=== PATIENT | male | born 1930 | race Caucasian/White ===

== ENCOUNTER 2016-10-11 05:57 | Inpatient (IN) | payer MEDICARE ==
--- NOTE | 2016-10-11 06:38 | ED ---
General Adult HPI - General Source: patient, RN notes reviewed, old records reviewed Mode of arrival: EMS <Mati Chong - Last Filed: 10/11/16 06:39> <Mati Devlin - Last Filed: 10/11/16 08:46> - General Chief complaint: Chest Pain Stated complaint: CHEST PAIN Time Seen by Provider: 10/11/16 06:28 - History of Present Illness Initial comments: This is a 6-year-old male yearly with chest pain. Patient coming in with chest pain noted A. fib EKG per EMS which patient denies history of. Patient states he did take 2 nitro which did help, did take an aspirin. At this time is chest pain resolved. He has a significant history of heart disease. No significant cough congestion or fevers, no real modifying factors for pain as far as worsening. No travel history, no recent hospitalizations (Mati Chong) - Related Data Home Medications Medication Instructions Recorded Confirmed Albuterol Nebulized [Ventolin 2.5 mg INHALATION RT-TID PRN 09/06/15 10/11/16 Nebulized] Allopurinol [Zyloprim] 200 mg PO DAILY 09/06/15 10/11/16 Aspirin 325 mg PO DAILY 09/06/15 10/11/16 Cholecalciferol [Vitamin D3] 1,000 unit PO DAILY 09/06/15 10/11/16 Doxazosin [Cardura] 2 mg PO DAILY 09/06/15 10/11/16 Gabapentin [Neurontin] 300 mg PO BID PRN 09/06/15 10/11/16 HYDROcodone/APAP 5-325MG [[place] 1 tab PO BID PRN 09/06/15 10/11/16 5-325] Sertraline [Zoloft] 50 mg PO DAILY 09/06/15 10/11/16 Tiotropium [place] [Spiriva] 1 puff INHALATION RT-DAILY 09/06/15 10/11/16 Vit A,C & E/Lutein/Minerals 1 tab PO DAILY 09/06/15 10/11/16 [Ocuvite with Lutein Tablet] Fluticasone/Salmeterol [Advair 1 puff PO RT-BID 11/28/15 10/11/16 250-50 Diskus] Furosemide [Lasix] 40 mg PO BID 11/28/15 10/11/16 Docusate [Colace] 100 mg PO DAILY PRN 10/11/16 10/11/16 Donepezil HCl [Aricept] 5 mg PO DAILY 10/11/16 10/11/16 Mupirocin 2% Oint [Bactroban 2% 1 applic TOPICAL DAILY PRN 10/11/16 10/11/16 Oint] guaiFENesin/CODEINE PHOSPHATE 10 ml PO Q6HR PRN 10/11/16 10/11/16 [Cheratussin AC Syrup] traZODone HCL 12.5 mg PO HS 10/11/16 10/11/16 Allergies Allergy/AdvReac Type Severity Reaction Status Date / Time No Known Allergies Allergy Verified 10/11/16 07:32 Review of Systems ROS Other: All systems not noted in ROS Statement are negative. <Mati Chong - Last Filed: 10/11/16 06:39> ROS Other: All systems not noted in ROS Statement are negative. <Mati Devlin - Last Filed: 10/11/16 08:46> ROS Statement: Those systems with pertinent positive or pertinent negative responses have been documented in the HPI. 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 , HX OF PNEUMONIA WITH PLEURISY, SOB WITH EXERTION, UNABLE TO WALK DISTANCE- USES WALKER. EDEMA IN LOWER EXTREMITIES- PTS STATES DIASTOLIC HEART FAILURE CAUSED BY "STIFF" LEFT VENTRICLE. History of Any Multi-Drug Resistant Organisms: None Reported Past Surgical History: Cholecystectomy, Hernia Repair, Joint Replacement, Tonsillectomy Additional Past Surgical History / Comment(s): lt tibula,fibula repair, repair deviated septum, shamir carpal tunnel, shamir. cataracts, pleural peel, pinky- lt hand repair w/screw, bilateral 1/2 knee replacment, recent growth removed from lt hand index and middle finger Past Anesthesia/Blood Transfusion Reactions: No Reported Reaction Past Psychological History: Depression Smoking Status: Never smoker Past Alcohol Use History: Occasional Past Drug Use History: None Reported - Past Family History Father Family Medical History: Cancer Additional Family Medical History / Comment(s): pancreatic Brother(s) Family Medical History: Cancer Additional Family Medical History / Comment(s): prostate Mother Family Medical History: CVA/TIA <Mati Chong - Last Filed: 10/11/16 06:39> General Exam General appearance: alert, in no apparent distress Head exam: Present: atraumatic, normocephalic, normal inspection Eye exam: Present: normal appearance, PERRL, EOMI. Absent: scleral icterus, conjunctival injection, periorbital swelling ENT exam: Present: normal exam, mucous membranes moist Neck exam: Present: normal inspection. Absent: tenderness, meningismus, lymphadenopathy Respiratory exam: Present: normal lung sounds bilaterally. Absent: respiratory distress, wheezes, rales, rhonchi, stridor Cardiovascular Exam: Present: regular rate, normal rhythm, normal heart sounds. Absent: systolic murmur, diastolic murmur, rubs, gallop, clicks GI/Abdominal exam: Present: soft, normal bowel sounds. Absent: distended, tenderness, guarding, rebound, rigid Extremities exam: Present: normal inspection, full ROM, normal capillary refill. Absent: tenderness, pedal edema, joint swelling, calf tenderness Back exam: Present: normal inspection Neurological exam: Present: alert, oriented X3, CN II-XII intact Psychiatric exam: Present: normal affect, normal mood Skin exam: Present: warm, dry, intact, normal color. Absent: rash <Mati Chong - Last Filed: 10/11/16 06:39> EKG Findings - EKG Comments: EKG Findings:: EKG shows A. fib rate 99, QRS 82, QTC 474 <Mati Chong - Last Filed: 10/11/16 06:39> Medical Decision Making <Mati Chong Last Filed: 10/11/16 06:39> - Lab Data Result diagrams: 10/11/16 06:55 10/11/16 06:55 <Mati Devlin - Last Filed: 10/11/16 08:46> - Medical Decision Making Chest x-ray shows cardiomegaly no overt failure. I went back in the room to the history and quick physical examination on the patient. Patient's troponin was mildly elevated because of this and his previous history we started the patient on heparin I admitted the patient spoke with Dr. Basurto accepted the admission I consult cardiology I gave the patient Nitropaste and continued to Nitropaste on the floor. He had an aspirin. (Mati Devlin) - Lab Data Lab Results 10/11/16 10/11/16 10/11/16 Range/Units 06:55 06:55 06:55 WBC 8.6 (3.8-10.6) k/uL RBC 4.22 L (4.30-5.90) m/uL Hgb 11.8 L (13.0-17.5) gm/dL Hct 37.0 L (39.0-53.0) % MCV 87.8 (80.0-100.0) fL MCH 27.9 (25.0-35.0) pg MCHC 31.7 (31.0-37.0) g/dL RDW 16.7 H (11.5-15.5) % Plt Count 177 (150-450) k/uL Neutrophils % 78 % Lymphocytes % 12 % Monocytes % 5 % Eosinophils % 4 % Basophils % 0 % Neutrophils # 6.7 (1.3-7.7) k/uL Lymphocytes # 1.0 (1.0-4.8) k/uL Monocytes # 0.4 (0-1.0) k/uL Eosinophils # 0.3 (0-0.7) k/uL Basophils # 0.0 (0-0.2) k/uL Hypochromasia Slight Anisocytosis Slight PT (9.0-12.0) sec INR (<1.1) APTT (22.0-30.0) sec D-Dimer (<0.60) mg/L FEU Sodium 145 (137-145) mmol/L Potassium 3.8 (3.5-5.1) mmol/L Chloride 101 (98-107) mmol/L Carbon Dioxide 33 H (22-30) mmol/L Anion Gap 11 mmol/L BUN 63 H (9-20) mg/dL Creatinine 2.29 H (0.66-1.25) mg/dL Est GFR (MDRD) Af Amer 33 (>60 ml/min/1.73 sqM) Est GFR (MDRD) Non-Af 27 (>60 ml/min/1.73 sqM) Glucose 145 H (74-99) mg/dL Calcium 8.8 (8.4-10.2) mg/dL Magnesium 2.3 (1.6-2.3) mg/dL Total Bilirubin 0.7 (0.2-1.3) mg/dL AST 27 (17-59) U/L ALT 34 (21-72) U/L Alkaline Phosphatase 81 (38-126) U/L Total Creatine Kinase 96 (55-170) U/L CK-MB (CK-2) 2.0 (0.0-2.4) ng/mL CK-MB (CK-2) Rel Index 2.1 Troponin I 0.153 H* (0.000-0.034) ng/mL NT-Pro-B Natriuret Pep pg/mL Total Protein 6.9 (6.3-8.2) g/dL Albumin 3.7 (3.5-5.0) g/dL Lipase 145 (23-300) U/L 10/11/16 10/11/16 Range/Units 06:55 06:55 WBC (3.8-10.6) k/uL RBC (4.30-5.90) m/uL Hgb (13.0-17.5) gm/dL Hct (39.0-53.0) % MCV (80.0-100.0) fL MCH (25.0-35.0) pg MCHC (31.0-37.0) g/dL RDW (11.5-15.5) % Plt Count (150-450) k/uL Neutrophils % % Lymphocytes % % Monocytes % % Eosinophils % % Basophils % % Neutrophils # (1.3-7.7) k/uL Lymphocytes # (1.0-4.8) k/uL Monocytes # (0-1.0) k/uL Eosinophils # (0-0.7) k/uL Basophils # (0-0.2) k/uL Hypochromasia Anisocytosis PT 11.0 (9.0-12.0) sec INR 1.1 (<1.1) APTT 23.1 (22.0-30.0) sec D-Dimer 0.47 (<0.60) mg/L FEU Sodium (137-145) mmol/L Potassium (3.5-5.1) mmol/L Chloride (98-107) mmol/L Carbon Dioxide (22-30) mmol/L Anion Gap mmol/L BUN (9-20) mg/dL Creatinine (0.66-1.25) mg/dL Est GFR (MDRD) Af Amer (>60 ml/min/1.73 sqM) Est GFR (MDRD) Non-Af (>60 ml/min/1.73 sqM) Glucose (74-99) mg/dL Calcium (8.4-10.2) mg/dL Magnesium (1.6-2.3) mg/dL Total Bilirubin (0.2-1.3) mg/dL AST (17-59) U/L ALT (21-72) U/L Alkaline Phosphatase (38-126) U/L Total Creatine Kinase (55-170) U/L CK-MB (CK-2) (0.0-2.4) ng/mL CK-MB (CK-2) Rel Index Troponin I (0.000-0.034) ng/mL NT-Pro-B Natriuret Pep 1720 pg/mL Total Protein (6.3-8.2) g/dL Albumin (3.5-5.0) g/dL Lipase (23-300) U/L Critical Care Time Critical Care Time: Yes Total Critical Care Time: 35 <Mati Devlin - Last Filed: 10/11/16 08:46> Disposition <Mati Chong - Last Filed: 10/11/16 06:39> Time of Disposition: 08:46 <Mati Devlin - Last Filed: 10/11/16 08:46> Clinical Impression: Unstable angina pectoris Disposition: ADMITTED IP TO THIS HOSP Referrals: Sandra Long DO [Primary Care Provider] - 1-2 days
--- NOTE | 2016-10-11 06:52 | XR ---
EXAMINATION TYPE: XR chest 2V DATE OF EXAM: 10/11/2016 6:44 AM COMPARISON: 09/19/2016 HISTORY: Short of breath TECHNIQUE: Frontal and lateral views of the chest are obtained. FINDINGS: There is no heart failure nor confluent pneumonic infiltrate. There are no hilar masses. C ostophrenic angles are clear. Thoracic aorta is atheromatous. There are chest leads. IMPRESSION: No active cardiopulmonary disease. No change.
[2016-10-11] MEDS ORDERED: LEVALBUTEROL NEB 1.25 MG/3 ML AMP INHALATION STA (06:59)
[2016-10-11] MEDS ORDERED: IPRATROPIUM 0.5 MG/2.5 ML NEBU INHALATION STA (06:59)
[2016-10-11 07:13] LABS: Anisocytosis Slight; Basophils % (A) 0 %; CH 27.7; CHCM 31.7; Eosinophils # (A) 0.3 k/uL (0-0.7); Eosinophils % (A) 4 %; HDW 3.04; HGB 11.8 gm/dL (13.0-17.5); Hypochromasia Slight; Luc # (Auto) 0.14; Luc % (Auto) 2; Lymphocytes % (A) 12 %; MCH 27.9 pg (25.0-35.0); MCHC 31.7 g/dL (31.0-37.0); MCV 87.8 fL (80.0-100.0); Mean Platelet Volume 8.2; Monocytes # (A) 0.4 k/uL (0-1.0); Monocytes % (A) 5 %; Neutrophils # (A) 6.7 k/uL (1.3-7.7); Neutrophils % (A) 78 %; RBC 4.22 m/uL (4.30-5.90); RDW 16.7 % (11.5-15.5); WBC 8.6 k/uL (3.8-10.6); WBC (Perox) 8.77
[2016-10-11 07:25] LABS: Calcium 8.8 mg/dL (8.4-10.2); Magnesium 2.3 mg/dL (1.6-2.3); Potassium 3.8 mmol/L (3.5-5.1); Total Bilirubin 0.7 mg/dL (0.2-1.3); Total Protein 6.9 g/dL (6.3-8.2)
[2016-10-11 07:33] LABS: INR 1.1 (<1.1); Partial Thromboplastin Time 23.1 sec (22.0-30.0)
[2016-10-11 08:02] LABS: Troponin I 0.153 ng/mL (0.000-0.034)
[2016-10-11] MEDS: DILTIAZEM 5 MG/ML 5 ML VIAL IVP STA ×2 (08:40→08:43)
[2016-10-11] MEDS ORDERED: HEPARIN SODIUM,PORCINE 5,000 UNIT/ML 1 ML VIAL IV ONE (08:44)
[2016-10-11] MEDS ORDERED: NITROGLYCERIN OINT 1 INCH/GM PACKET TOPICAL STA (08:44)
[2016-10-11] MEDS ORDERED: NITROGLYCERIN SL TABS 0.4 MG TAB SUBLINGUAL PRN (08:46)
[2016-10-11] MEDS: HEPARIN SODIUM,PORCINE/D5W PMX 25,000 UNIT in DEXTROSE/WATER 1 500ML.BAG IV SCH (08:59)
[2016-10-11] MEDS ORDERED: HYDROcodone/APAP 5-325MG 1 EACH TAB PO PRN (10:46)
[2016-10-11] MEDS ORDERED: MUPIROCIN 2% OINT 22 GM TUBE TOPICAL PRN (10:46)
[2016-10-11] MEDS ORDERED: ALBUTEROL NEBULIZED 2.5 MG/3 ML INHALATION PRN (10:46)
[2016-10-11] MEDS ORDERED: FUROSEMIDE 20 MG TAB PO SCH (11:00)
[2016-10-11] MEDS ORDERED: FUROSEMIDE 40 MG TAB PO SCH (11:00)
[2016-10-11 13:53] LABS: Creatine Kinase MB 2.1 ng/mL (0.0-2.4)
[2016-10-11 13:59] LABS: Troponin I 0.149 ng/mL (0.000-0.034)
--- NOTE | 2016-10-11 14:29 | HP ---
DATE OF ADMISSION: 10/11/2016 PRESENTING COMPLAINT: Chest pain HISTORY OF PRESENTING COMPLAINT: This is a very pleasant 86-year-old patient of Dr. Sandra Long. Patient's is at the bedside. Helping with most of the history. Patient's chronic stable conditions include right-sided congestive heart failure, hypertension, prostate cancer treated with radiation treatment. Patient has urinary incontinence, peripheral neuropathy, the right kidney does not function, with a decreased function of the left kidney, urine incontinence, emphysema, depression. The patient woke up this morning with left-sided precordial pain, present for about15 minutes, then went away, then came back again. There was no dizziness. No sweating, no perspiration, not much short of breath than baseline. Patient was admitted for unstable angina. REVIEW OF SYSTEMS: CONSTITUTIONAL: Tired. HEENT: Decreased headache. RESPIRATORY: Some shortness of breath. CARDIOVASCULAR: As above. GASTROINTESTINAL: None. GENITOURINARY: Urinary incontinence. DERMATOLOGICAL: None. HEMATOLOGICAL: None. LYMPHATIC: None. PSYCHIATRY: History of depression, controlled. NEUROLOGICAL: Numbness, tingling in the feet. Past history of right-sided congestive heart failure, GI bleed in the remote past, hypertension, malfunctioning right kidney and decreased function of the left kidney, prostate cancer with radiation treatment, peripheral neuropathy, emphysema, depression, chronic urinary incontinence. PAST SURGICAL HISTORY: Cholecystectomy, hernia repair, tonsillectomy, right tibia-fibular repair, repair DNS, bilateral carpal tunnel surgery, bilateral cataracts, bilateral hemarthrosis of the knee, skin cancer removed, left inguinal umbilical hernia repair, low back pain, injections. EGD, colonoscopy. SOCIAL HISTORY: . Wears bilateral lower leg braces. No smoking. Alcohol rarely. Retired as an solution design engineer. FAMILY HISTORY: Father had pancreatic cancer. HOME MEDICATIONS: 1. Zoloft 50 mg p.o. daily. 2. Allopurinol 200 mg p.o. daily. 3. Bactroban 2% topically daily p.r.n. 4. Cheratussin 10 mL p.o. q.6 p.r.n. 5. Ocuvite 1 tablet p.o. daily. 6. Colace 100 mg p.o. daily p.r.n. 7. Vitamin D3 one thousand units p.o. daily. 8. Trazodone 12.5 p.o. q.h.s. 9. Aspirin 325 mg p.o. daily. 10. Lasix 40 mg p.o. b.i.d. 11. Cardura 2 mg p.o. daily. 12. Aricept 5 mg p.o. daily. 13. Spiriva 1 puff daily. 14. Sod 5 one tablet p.o. b.i.d. p.r.n. 15. Neurontin 300 mg p.o. b.i.d. p.r.n. 16. Advair 250/50 one puff b.i.d. 17. Ventolin 2.5 t.i.d. p.r.n. ALLERGIES: None. On examination, vital signs on presentation: Temperature 98.1, pulse 103, respirations 18, blood pressure 102/67, pulse ox 97% on 4 L. GENERAL APPEARANCE: Well built, BMI of 36.3, sitting up, tired -appearing. EYES: Pupils equal, conjunctivae normal. HEENT: Oral cavity normal. NECK: JVD not raised. Mass not palpable. Respiratory effort increased. LUNGS: Diminished breath sounds. CARDIOVASCULAR: First and second sounds normal. No edema present. ABDOMEN: Distended, soft. Liver and spleen not palpable. LYMPHATIC: No lymph node palpable in neck or axillae. PSYCHIATRY: Alert and oriented x3. Mood and affect was normal. NEUROLOGICAL: Pupils equal. Cranial nerves grossly intact, decreased sensation distally with some tenderness. INVESTIGATIONS: White count 8.6, hemoglobin 11.8, potassium 3.8, BUN 63, creatinine 2.29, GFR 27, troponin 0.153, proBNP 1720. Chest x-ray shows a cardiomegaly of venous prominence. ASSESSMENT: 1. Possible unstable angina in a patient with no prior cardiac history. His cardiac risk factors include his age, hypertension, chronic kidney disease. 2. Essential hypertension, chronic. 3. Peripheral neuropathy, idiopathic. 4. Emphysema. 5. 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 6. Depression, not otherwise specified. 7. Chronic urinary incontinence. 8. Obesity, body mass index of 36.3. 9. Possible acute congestive heart failure exacerbation based on radiological findings, edema. It could be an element of right-sided failure. PLAN: Will put the patient on IV Lasix, see how he does clinically. Cardiology has been consulted. Serial cardiac enzymes are in place. Will get a Nephrology consult. Care was discussed with the patient and at the bedside.
[2016-10-11] MEDS: ALLOPURINOL 100 MG TAB PO SCH (14:30)
[2016-10-11] MEDS: NITROGLYCERIN OINT 1 INCH/GM PACKET TOPICAL SCH ×4 (14:30→22:43)
[2016-10-11] MEDS: SERTRALINE 50 MG TAB PO SCH (14:30)
[2016-10-11] MEDS: DOXAZOSIN 2 MG TAB PO SCH (14:30)
[2016-10-11] MEDS: DONEPEZIL 5 MG TAB PO SCH (14:30)
[2016-10-11] MEDS: FUROSEMIDE 10 MG/ML 10 ML VIAL IV SCH ×3 (14:30→22:39)
[2016-10-11] MEDS: HEPARIN SODIUM,PORCINE 5,000 UNIT/ML 1 ML VIAL IV PRN ×2 (17:04→23:20)
[2016-10-11 20:09] LABS: Creatine Kinase MB 2.2 ng/mL (0.0-2.4)
[2016-10-11 20:12] LABS: Troponin I 0.165 ng/mL (0.000-0.034)
[2016-10-11] MEDS: traZODone HCL 50 MG TAB PO SCH (20:38)
[2016-10-11] MEDS: SYMBICORT 80-4.5 MCG INHALER INHALATION SCH (20:48)
[2016-10-11] MEDS: MELATONIN 3 MG TABLET PO SCH (23:21)
[2016-10-12 06:38] LABS: Cholesterol 133 mg/dL (<200); HDL Cholesterol 43 mg/dL (40-60); Triglycerides 91 mg/dL (<150)
[2016-10-12] MEDS: SYMBICORT 80-4.5 MCG INHALER INHALATION SCH ×2 (07:47→18:49)
[2016-10-12] MEDS ORDERED: TIOTROPIUM 18 MCG/PUFF INHALER INHALATION SCH (08:00)
[2016-10-12] MEDS: NITROGLYCERIN OINT 1 INCH/GM PACKET TOPICAL SCH ×3 (08:22→15:41)
[2016-10-12] MEDS: ALLOPURINOL 100 MG TAB PO SCH (08:23)
[2016-10-12] MEDS: FUROSEMIDE 10 MG/ML 10 ML VIAL IV SCH ×2 (08:23→15:40)
[2016-10-12] MEDS: ASPIRIN 325 MG TAB PO SCH (08:23)
[2016-10-12] MEDS: SERTRALINE 50 MG TAB PO SCH (08:23)
[2016-10-12] MEDS: DOXAZOSIN 2 MG TAB PO SCH (08:24)
[2016-10-12] MEDS: HEPARIN SODIUM,PORCINE/D5W PMX 25,000 UNIT in DEXTROSE/WATER 1 500ML.BAG IV SCH (08:24)
[2016-10-12] MEDS: DONEPEZIL 5 MG TAB PO SCH (08:24)
[2016-10-12 08:46] LABS: Calcium 9.2 mg/dL (8.4-10.2); Potassium 3.6 mmol/L (3.5-5.1)
--- NOTE | 2016-10-12 10:21 | ECHOF ---
Referral Reason:chf MEASUREMENTS -------- HEIGHT: 180.3 cm WEIGHT: 117.9 kg BP: 107/75 RVIDd: 3.4 cm (< 3.3) IVSd: 1.6 cm (0.6 - 1.1) LVIDd: 4.7 cm (3.9 - 5.3) LVPWd: 1.5 cm (0.6 - 1.1) IVSs: 2.0 cm LVIDs: 3.7 cm LVPWs: 2.2 cm LA Diam: 4.2 cm (2.7 - 3.8) LAESV Index (A-L): 46.28 ml/m Ao Diam: 3.9 cm (2.0 - 3.7) AV Cusp: 2.2 cm (1.5 - 2.6) MV EXCURSION: 10.325 mm (> 18.000) MV EF SLOPE: 47 mm/s (70 - 150) EPSS: 0.5 cm AV maxP.77 mmHg AV meanP.96 mmHg RAP: 5.00 mmHg RVSP: 24.79 mmHg FINDINGS -------- Atrial fibrillation. This was a technically difficult study with suboptimal apical views. The left ventricular size is normal. There is moderate concentric left ventricular hypertrophy. Overall left ventricular systolic function is mildly impaired with, an EF between 45 - 50 %. The right ventricle is mildly enlarged. LA is severely dilated >40 ml/m2 The right atrium is normal in size. 1.5mg of Definity was utilized for enhancement of images Aortic valve is trileaflet and is mildly thickened. Peak/mean gradient across the Aortic Valve is 11.77mmHg / 5.96mmHg. Mild mitral annular calcification present. Mild tricuspid regurgitation present. Right ventricular systolic pressure is normal at < 35 mmHg. The pulmonic valve was not well visualized. The aortic root is dilated measuring 3.9cm. The inferior vena cava is mildly dilated. There is no pericardial effusion. CONCLUSIONS -------- 1. Atrial fibrillation. 2. Aortic valve is trileaflet and is mildly thickened. 3. Peak/mean gradient across the Aortic Valve is 11.77mmHg / 5.96mmHg. 4. Mild mitral annular calcification present. 5. Mild tricuspid regurgitation present. 6. Right ventricular systolic pressure is normal at < 35 mmHg. 7. The pulmonic valve was not well visualized. 8. The aortic root is dilated measuring 3.9cm. 9. The inferior vena cava is mildly dilated. 10. There is no pericardial effusion. 11. This was a technically difficult study with suboptimal apical views. 12. The left ventricular size is normal. 13. There is moderate concentric left ventricular hypertrophy. 14. Overall left ventricular systolic function is mildly impaired with, an EF between 45 - 50 %. 15. The right ventricle is mildly enlarged. 16. LA is severely dilated >40 ml/m2 17. The right atrium is normal in size. 18. 1.5mg of Definity was utilized for enhancement of images [employer] WR[employer]PER: Rashmi Levy RDCS
--- NOTE | 2016-10-12 17:00 | CONS ---
DATE OF CONSULTATION: This is an 86-year-old male who was admitted to the hospital several days ago. The patient states that one day ago he noticed irritation and a foreign body sensation in his right eye. He was accompanied by a significant amount of redness as well. The patient states that through the night and throughout the day today the pain became less and less and he is now at a point where he cannot feel any foreign body sensation in his right eye at all. He has never had any history of this in the past. Visual acuity without correction measured 20/40 OU. Pupils are equal and reactive to light. On penlight exam the lids were normal with a mild amount of ptosis bilaterally. The conjunctivae on the right eye exhibited mild injection, on the left eye was quiet. Both corneas were clear and the remainder of the exam was otherwise unremarkable. IMPRESSION: Corneal abrasion, right eye. The patient appears to still have some residual inflammation. I would recommend starting on Pred-G ointment one eighth of an inch OD q.i.d. and follow-up upon discharge. Thank you for the consultation.
[2016-10-12] MEDS: GENTAMICIN/PREDNISOL AC OPHTH OINT 3.5GM RIGHT EYE SCH ×2 (17:53→21:25)
[2016-10-12] MEDS: IPRATROPIUM-ALBUTEROL 3 ML NEB INHALATION SCH (19:55)
[2016-10-12] MEDS: traZODone HCL 50 MG TAB PO SCH (20:19)
[2016-10-12] MEDS: MELATONIN 3 MG TABLET PO SCH (20:20)
--- NOTE | 2016-10-12 21:57 | PN ---
DATE OF SERVICE: 10/12/2016 PRESENTING COMPLAINT: Chest pain, shortness of breath. INTERVAL HISTORY: This is a patient admitted with CHF exacerbation. Two-D echo has come back showing EF of 40% to 45%. Some edema has gone down. Breathing is better. is at the bedside. Patient feels a bit better. Review of systems done for constitutional, cardiovascular, GI, pulmonary; relevant findings as above. Current medications are reviewed that include: 1. IV Lasix. 2. IV heparin. On examination, temperature 97.4, pulse 118, respiration 18, blood pressure 125/74, pulse ox 93% on room air. GENERAL APPEARANCE: Sitting up in a chair, not in distress. EYES: Pupils equal. Conjunctivae normal. NECK: JVD possibly raised. RESPIRATORY: Effort increased. LUNGS: Diminished breath sounds. CARDIOVASCULAR: First and second sounds normal. Decreased edema. ABDOMEN: Soft, nontender. Liver and spleen not palpable. PSYCHIATRY: Alert and oriented x3. Mood an affect normal. INVESTIGATIONS: Potassium 3.6, BUN 70, creatinine 2.47. Two-D echocardiogram shows atrial fibrillation, EF 45% to 50% consistent with left ventricular hypertrophy. ASSESSMENT: 1. Acute on chronic congestive heart failure from both systolic and diastolic dysfunction, ejection fraction around 45% from underlying hypertensive heart disease. 2. Possible underlying coronary artery disease, given his risk factors, presentation, troponin leak. 3. Essential hypertension, chronic. 4. Peripheral neuropathy, idiopathic. 5. Emphysema. 6. Chronic disease, stage 4, probably nephrosclerosis. 7. Depression, not otherwise specified. 8. Chronic urinary incontinence. 9. Obesity, body mass index of 36.3. 10. Right eye corneal abrasion as per Dr. Stark, who has ordered prednisone used topically. PLAN: Will switch the patient over to p.o. Lasix in the morning, repeat a chest x-ray in the morning. I do not have a cardiology consult dictation as of now. Care was discussed with the patient and the at the bedside.
--- NOTE | 2016-10-13 07:37 | XR ---
EXAMINATION TYPE: XR chest 2V DATE OF EXAM: 10/13/2016 6:29 AM COMPARISON: 10/11/2016 HISTORY: Chest pain FINDINGS: The lungs are clear and there is no pneumothorax, pleural effusion, or focal pneumonia. Stable card iomegaly. Limitation lateral margin of the right lung base due to technique. IMPRESSION: 1. No acute process as visualized.
[2016-10-13 07:44] LABS: Calcium 9.4 mg/dL (8.4-10.2); Potassium 3.5 mmol/L (3.5-5.1)
[2016-10-13] MEDS: GENTAMICIN/PREDNISOL AC OPHTH OINT 3.5GM RIGHT EYE SCH ×4 (07:59→22:41)
[2016-10-13] MEDS: HEPARIN SODIUM,PORCINE/D5W PMX 25,000 UNIT in DEXTROSE/WATER 1 500ML.BAG IV SCH (07:59)
[2016-10-13] MEDS: DONEPEZIL 5 MG TAB PO SCH (07:59)
[2016-10-13] MEDS: SERTRALINE 50 MG TAB PO SCH (07:59)
[2016-10-13] MEDS: ASPIRIN 325 MG TAB PO SCH (07:59)
[2016-10-13] MEDS: ALLOPURINOL 100 MG TAB PO SCH (07:59)
[2016-10-13] MEDS: DOXAZOSIN 2 MG TAB PO SCH (07:59)
[2016-10-13] MEDS: SYMBICORT 80-4.5 MCG INHALER INHALATION SCH ×2 (08:09→19:09)
[2016-10-13] MEDS: IPRATROPIUM-ALBUTEROL 3 ML NEB INHALATION SCH ×4 (08:09→19:09)
[2016-10-13] MEDS ORDERED: FUROSEMIDE 80 MG TAB PO SCH (09:00)
--- NOTE | 2016-10-13 09:26 | P.CRDCN ---
History of Present Illness Consult date: 10/12/16 Reason for Consult (text): unstable angina Chief complaint: chest pain History of present illness: This is a pleasant 86-year-old gentleman who is a poor historian, most of the HPI was obtained from his and the medical record. He does have a known history of chronic lung disease, right-sided heart failure, hypertension, renal disease and prostate cancer with radiation treatment in the past. Presented to the emergency department with complaints of chest discomfort. It is unclear if patient had any associated symptoms as he cannot clearly recall the incident. He was recently being treated for increasing lower extremity edema by his oceanography professor with Lasix and Zaroxolyn. Upon presentation, patient was found to be in atrial fibrillation, which is new for him. He was initiated on a heparin drip. Chest x-ray showed no active cardiopulmonary disease, no change from previous. Laboratory values showed a BUN of 63 creatinine 2.29, troponin of 0.153, 0.149 and 0.165 and a BNP of 1720. Patient was started on Lasix 80 mg IV push every 8 hours upon admission. Upon examination this morning, patient is sitting up in a chair at the bedside with his . He is any further complaints of chest discomfort. He has no complaints of palpitations, dizziness, lightheadedness or syncope. He denies complaints of shortness of breath. Past Medical History Past Medical History: Cancer, Heart Failure, Eye Disorder, GI Bleed, Hypertension, Pneumonia, Renal Disease Additional Past Medical History / Comment(s): Pt states about 1 week ago began having R eye irritation and redness-was seen by Dr. 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 EDEMA IN LOWER EXTREMITIES- PTS STATES DIASTOLIC HEART FAILURE CAUSED BY "STIFF" LEFT VENTRICLE. History of Any Multi-Drug Resistant Organisms: None Reported Past Surgical History: Cholecystectomy, Hernia Repair, Joint Replacement, Tonsillectomy Additional Past Surgical History / Comment(s): R tibula,fibula repair, repair deviated septum, shamir carpal tunnel, shamir. cataracts, pleural peel, pinky- lt hand repair w/screw, bilateral hemiarthroplasties knees, growth removed from lt hand index and middle finger, skin cancer removals, L inguinal and umbilical hernia repairs, low back pain injections, EGD/colonoscopies. Past Anesthesia/Blood Transfusion Reactions: No Reported Reaction Additional Past Anesthesia/Blood Transfusion Reaction / Comment(s): Pt has received blood in the past without reaction. Past Psychological History: Depression Additional Psychological History / Comment(s): Pt has depression and takes an RX for this which works well. He resides with his spouse. He uses a walker if going any distance. He no longer drives. His spouse drives. Due to his neuropathy, he wears bilateral lower leg braces. Smoking Status: Never smoker Past Alcohol Use History: Rare Past Drug Use History: None Reported - Past Family History Father Family Medical History: Cancer Additional Family Medical History / Comment(s): Father of pancreatic cancer at the age of 76yrs. Brother(s) Family Medical History: Cancer Additional Family Medical History / Comment(s): prostate cancer. Mother Family Medical History: CVA/TIA Additional Family Medical History / Comment(s): Mother of a CVA at the age of 77yrs. Medications and Allergies Home Medications Medication Instructions Recorded Confirmed Type Albuterol Nebulized [Ventolin 2.5 mg INHALATION RT-TID PRN 09/06/15 10/11/16 History Nebulized] Allopurinol [Zyloprim] 200 mg PO DAILY 09/06/15 10/11/16 History Aspirin 325 mg PO DAILY 09/06/15 10/11/16 History Cholecalciferol [Vitamin D3] 1,000 unit PO DAILY 09/06/15 10/11/16 History Doxazosin [Cardura] 2 mg PO DAILY 09/06/15 10/11/16 History Gabapentin [Neurontin] 300 mg PO BID PRN 09/06/15 10/11/16 History HYDROcodone/APAP 5-325MG [[place] 1 tab PO BID PRN 09/06/15 10/11/16 History 5-325] Sertraline [Zoloft] 50 mg PO DAILY 09/06/15 10/11/16 History Tiotropium [place] [Spiriva] 1 puff INHALATION RT-DAILY 09/06/15 10/11/16 History Vit A,C & E/Lutein/Minerals 1 tab PO DAILY 09/06/15 10/11/16 History [Ocuvite with Lutein Tablet] Fluticasone/Salmeterol [Advair 1 puff PO RT-BID 11/28/15 10/11/16 History 250-50 Diskus] Furosemide [Lasix] 40 mg PO BID 11/28/15 10/11/16 History Docusate [Colace] 100 mg PO DAILY PRN 10/11/16 10/11/16 History Donepezil HCl [Aricept] 5 mg PO DAILY 10/11/16 10/11/16 History Mupirocin 2% Oint [Bactroban 2% 1 applic TOPICAL DAILY PRN 10/11/16 10/11/16 History Oint] guaiFENesin/CODEINE PHOSPHATE 10 ml PO Q6HR PRN 10/11/16 10/11/16 History [Cheratussin AC Syrup] traZODone HCL 12.5 mg PO HS 10/11/16 10/11/16 History Allergies Allergy/AdvReac Type Severity Reaction Status Date / Time No Known Allergies Allergy Verified 10/11/16 07:32 Physical Exam Vitals: Vital Signs Temp Pulse Resp BP Pulse Ox 10/12/16 11:42 98.0 F 103 H 18 138/84 94 L 10/12/16 08:00 97.6 F 100 18 108/64 95 10/12/16 03:48 107 H 18 10/12/16 03:47 97.9 F 107 H 18 113/72 96 10/11/16 22:36 105 H 16 141/82 96 10/11/16 20:00 20 10/11/16 19:30 97.8 F 110 H 20 107/67 95 10/11/16 17:12 110 H 20 10/11/16 17:00 16 10/11/16 16:00 100 16 124/76 98 Intake and Output 10/11/16 10/12/16 10/12/16 22:59 06:59 14:59 Intake Total 1261.667 338.333 360 Output Total 725 1700 400 Balance 536.667 -1361.667 -40 Intake: Intake, IV Titration 161.667 338.333 Amount Heparin Sodium,Porcine/ 161.667 338.333 D5w Pmx 25,000 unit In Dextrose/Water 1 500ml. bag @ 8.48 UNITS/KG/HR 20 mls/hr IV .Q24H [facility]WAYNE Rx#: [id number] Oral 1100 360 Output: Urine 725 1700 400 Other: Voiding Method Urinal Urinal Urinal # Voids 1 Weight 122 kg 122 kg Patient Weight 10/13/16 06:59 Weight 122 kg PHYSICAL EXAMINATION: HEENT: Head is atraumatic, normocephalic. Pupils equal, round. Neck is supple. There is no elevated jugular venous pressure. HEART EXAMINATION: Heart sounds irregular regular, S1 and S2 normal. No murmur or gallop heard. CHEST EXAMINATION: Lungs reveal diminished air entry bilaterally. No chest wall tenderness is noted on palpation or with deep breathing. ABDOMEN: Soft, obese, nontender. Bowel sounds are heard. No organomegaly noted. EXTREMITIES: 2+ peripheral pulses with evidence of 1-2+ peripheral edema and no calf tenderness noted. NEUROLOGIC patient is awake, alert and oriented x3 with poor short-term memory and periods of confusion. . Results 10/11/16 06:55 10/13/16 07:15 Cardiac Enzymes 10/11/16 10/11/16 Range/Units 12:53 19:11 CK-MB (CK-2) 2.1 2.2 (0.0-2.4) ng/mL Troponin I 0.149 H* 0.165 H* (0.000-0.034) ng/mL Coagulation 10/11/16 10/11/16 10/12/16 Range/Units 15:01 22:21 05:25 APTT 25.5 28.8 36.7 H (22.0-30.0) sec 10/12/16 Range/Units 12:38 APTT 30.0 (22.0-30.0) sec Lipids 10/12/16 Range/Units 05:25 Triglycerides 91 (<150) mg/dL Cholesterol 133 (<200) mg/dL HDL Cholesterol 43 (40-60) mg/dL Comprehensive Metabolic Panel 10/12/16 Range/Units 05:25 Sodium 142 (137-145) mmol/L Potassium 3.6 (3.5-5.1) mmol/L Chloride 98 (98-107) mmol/L Carbon Dioxide 27 (22-30) mmol/L BUN 70 H (9-20) mg/dL Creatinine 2.47 H (0.66-1.25) mg/dL Glucose 146 H (74-99) mg/dL Calcium 9.2 (8.4-10.2) mg/dL Current Medications Generic Name Dose Route Start Last Admin Trade Name Freq PRN Reason Stop Dose Admin Acetaminophen/Hydrocodone Bitart 1 each 10/11/16 10:46 [place] 5-325 PO BID PRN Pain Albuterol Sulfate 2.5 mg 10/11/16 10:46 Ventolin Nebulized INHALATION RT-TID PRN Shortness Of Breath Allopurinol 200 mg 10/11/16 11:00 10/12/16 08:23 Zyloprim PO 200 mg DAILY DEWAYNE Administration Aspirin 325 mg 10/12/16 09:00 10/12/16 08:23 Aspirin PO 325 mg DAILY DEWAYNE Administration Budesonide/Formoterol Fumarate 2 puff 10/11/16 20:00 10/12/16 07:47 Symbicort 80-4.5 Mcg Inhaler INHALATION 2 puff RT-BID DEWAYNE Administration Donepezil HCl 5 mg 10/11/16 11:00 10/12/16 08:24 Aricept PO 5 mg DAILY DEWAYNE Administration Doxazosin Mesylate 2 mg 10/11/16 11:00 10/12/16 08:24 Cardura PO 2 mg DAILY DEWAYNE Administration Furosemide 80 mg 10/11/16 11:45 10/12/16 08:23 Lasix IV 80 mg Q8HR DEWAYNE Administration Heparin Sodium (Porcine) 0 unit 10/11/16 16:54 10/11/16 23:20 Heparin IV 4,000 unit PER PROTOCOL PRN Administration Low PTT Protocol Heparin Sodium/Dextrose 25,000 500 mls @ 20 mls/hr 10/11/16 08:45 10/12/16 08 :24 unit/ IV Solution IV 17.48 units/kg/hr .Q24H DEWAYNE 41.22 mls/hr Protocol Administration 8.48 UNITS/KG/HR Melatonin 3 mg 10/11/16 23:00 10/11/16 23:21 Melatonin PO 3 mg HS DEWAYNE Administration Mupirocin 1 applic 10/11/16 10:46 Bactroban Oint TOPICAL DAILY PRN INFECTION Nitroglycerin 1 inch 10/11/16 12:00 10/12/16 12:53 Nitro-Bid Oint TOPICAL 1 inch Q6HR DEWAYNE Administration Nitroglycerin 0.4 mg 10/11/16 08:46 Nitrostat SUBLINGUAL Q5M PRN Chest Pain Sertraline HCl 50 mg 10/11/16 11:00 10/12/16 08:23 Zoloft PO 50 mg DAILY DEWAYNE Administration Tiotropium [place] 1 puff 10/12/16 08:00 10/12/16 11:27 Spiriva INHALATION Not Given RT-DAILY DE[facility]NE Trazodone HCl 12.5 mg 10/11/16 21:00 10/11/16 20:38 Desyrel PO 12.5 mg HS DEWAYNE Administration Intake and Output 10/11/16 10/12/16 10/12/16 22:59 06:59 14:59 Intake Total 1261.667 338.333 360 Output Total 725 1700 400 Balance 536.667 -1361.667 -40 Intake: Intake, IV Titration 161.667 338.333 Amount Heparin Sodium,Porcine/ 161.667 338.333 D5w Pmx 25,000 unit In Dextrose/Water 1 500ml. bag @ 8.48 UNITS/KG/HR 20 mls/hr IV .Q24H [facility] Rx#: [id number] Oral 1100 360 Output: Urine 725 1700 400 Other: Voiding Method Urinal Urinal Urinal # Voids 1 Weight 122 kg 122 kg Patient Weight 10/13/16 06:59 Weight 122 kg 10/12/16 05:25 EKG Interpretations (text) Atrial fibrillation Assessment and Plan Plan: Assessment and plan #1 atrial fibrillation, new onset #2 acute on chronic kidney disease #3 COPD #4 hypertension #5 history of falls #6 Possible element of congestive heart failure with an ejection fraction of 45- 50%, BNP 1720 From cardiology's standpoint, we will continue IV lasix for at least another 24 hours. Continue to follow renal function, daily weights and intake/output. Further recommendations to follow. ARTS THERAPIST note has been reviewed, I agree with a documented findings and plan of care. Patient was seen and examined.
--- NOTE | 2016-10-13 15:21 | PN ---
An 86-year-old male patient who is admitted with worsening heart failure. He has atrial fibrillation with RVR up to 120 beats a minute. He looks a lot better now. He is sitting comfortably in a chair. According to his , he does have dementia. His heart rate is in between 90 to 120 beats a minute. Afebrile, 97.5. His blood pressure is 116/61 mmHg. Breath sounds are reduced bilaterally but are equal. Heart sounds are irregular. There is no lower extremity edema. IMPRESSION: 1. Atrial fibrillation with rapid ventricular response. 2. Left ventricular ejection fraction of 45% to 50%. Mild left ventricular systolic dysfunction. 3. Congestive heart failure. 4. Chronic kidney disease His GFR is less than 30 and he has history of kidney disease. 5. History of prostate cancer with radiation. SUGGEST: Rate control of atrial fibrillation. Anticoagulation will be an issue because of a history of falls. Chronic kidney disease, advanced kidney disease, history of COPD, hypertension, and chronic systolic ( ) dysfunction. Suggest rate control only for atrial fibrillation.
[2016-10-13] MEDS: MELATONIN 3 MG TABLET PO SCH (20:29)
[2016-10-13] MEDS: METOPROLOL TARTRATE 25 MG TAB PO SCH (20:29)
[2016-10-13] MEDS: traZODone HCL 50 MG TAB PO SCH (20:29)
--- NOTE | 2016-10-13 20:29 | PN ---
DATE OF SERVICE: 10/13/2016 PRESENTING COMPLAINT: Shortness of breath. INTERVAL HISTORY: This is a patient admitted with CHF exacerbation. 2-D echo showed EF of 40% to 45%. Edema is gone and breathing is getting better. Patient's atrial fibrillation is running around 100s to 110s. is at the bedside. Review of systems done for constitutional, cardiovascular, GI, pulmonary; relevant findings as above. Current medications are reviewed that include IV heparin and p.o. Lasix. On examination, temperature 97.6, pulse 100, respirations 19, blood pressure 120/69, pulse ox 94% on room air. GENERAL APPEARANCE: Sitting up in a chair, more comfortable. EYES: Pupils equal. Conjunctivae normal. NECK: JVD not raised. RESPIRATORY: Effort increased. LUNGS: Diminished breath sounds. CARDIOVASCULAR: First and second decreased edema. ABDOMEN: Soft. Liver and spleen and spleen not palpable. PSYCHIATRY: Alert and oriented x3. Mood and affect normal. INVESTIGATIONS: Telemetry shows A. fib. Chest x-ray reported no acute findings. Potassium 3.5, BUN 33, creatinine 2.60. ASSESSMENT: 1. Acute on chronic congestive heart failure from both systolic and diastolic function; ejection fraction 40% to 45% from underlying hypertensive heart disease, now more controlled. 2. Essential hypertension, chronic. 3. Peripheral neuropathy, chronic. 4. Emphysema. 5. 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 6. Depression, not otherwise specified. 7. Chronic urinary incontinence. 8. Obesity; body mass index 36.3. 9. Right eye corneal abrasion, getting steroids. 10. Persistent atrial fibrillation, rate dropped 100. PLAN: Patient is a unsteady and is a bit high risk of bleeding including that of renal failure. Cardiology determined that the patient would need decision about anticoagulation. The patient is due to see executive services administrator as an outpatient, we will get opinion while the patient is in the hospital. Also cut back on the dose of Lasix.
[2016-10-14] MEDS: HEPARIN SODIUM,PORCINE/D5W PMX 25,000 UNIT in DEXTROSE/WATER 1 500ML.BAG IV SCH (04:54)
[2016-10-14 07:48] LABS: Calcium 9.2 mg/dL (8.4-10.2); Potassium 3.4 mmol/L (3.5-5.1)
[2016-10-14] MEDS: FUROSEMIDE 80 MG TAB PO SCH (07:53)
[2016-10-14] MEDS: DONEPEZIL 5 MG TAB PO SCH (07:53)
[2016-10-14] MEDS: GENTAMICIN/PREDNISOL AC OPHTH OINT 3.5GM RIGHT EYE SCH ×4 (07:53→21:01)
[2016-10-14] MEDS: DOXAZOSIN 2 MG TAB PO SCH (07:53)
[2016-10-14] MEDS: METOPROLOL TARTRATE 25 MG TAB PO SCH ×3 (07:53→21:00)
[2016-10-14] MEDS: ASPIRIN 325 MG TAB PO SCH (07:54)
[2016-10-14] MEDS: ALLOPURINOL 100 MG TAB PO SCH (07:54)
[2016-10-14] MEDS: SERTRALINE 50 MG TAB PO SCH (07:54)
[2016-10-14] MEDS: SYMBICORT 80-4.5 MCG INHALER INHALATION SCH ×2 (08:39→20:03)
[2016-10-14] MEDS: IPRATROPIUM-ALBUTEROL 3 ML NEB INHALATION SCH ×4 (08:39→20:03)
[2016-10-14] MEDS ORDERED: POTASSIUM CHLORIDE ER 20 MEQ TAB.ER PO STA (09:18)
--- NOTE | 2016-10-14 09:21 | P.NPCON ---
History of Present Illness - Reason for Consult acute renal failure - History of Present Illness Reason for consultation: Acute kidney injury History of present illness: Patient is a 86-year-old male seen in renal consultation for acute kidney injury. Unclear as to what his baseline renal function is. His creatinine did peak at 2.6 this admission and is improved to 2.4 today. He does a history of systolic CHF with ejection fraction of 45-50% and was maintained on Lasix 80 mg twice daily. Dose was decreased to 80 mg once daily yesterday. He presented with chest discomfort and was noted to be in atrial fibrillation with RVR. Currently maintained on a heparin drip. Denies any chest pain or shortness of breath. Admits to good urine output. No hematuria or dysuria. Hemodynamically he stable. Denies use of NSAIDs. No vomiting or diarrhea. Appetite is good. Vital signs are stable. General: The patient appeared well nourished and normally developed. HEENT: Head exam is unremarkable. Neck is without jugular venous distension. LUNGS: Lungs are clear to auscultation and percussion. Breath sounds decreased. HEART: Rate and Rhythm are regular. First and second heart sounds normal. No murmurs, rubs or gallops. ABDOMEN: Abdominal exam reveals normal bowel sounds. Non-tender and non- distended. No evidence of peritonitis. EXTREMITITES: No clubbing, cyanosis, or edema. Past Medical History Past Medical History: Cancer, Heart Failure, Eye Disorder, GI Bleed, Hypertension, Pneumonia, Renal Disease Additional Past Medical History / Comment(s): Pt states about 1 week ago began having R eye irritation and redness-was seen by Dr. 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 EDEMA IN LOWER EXTREMITIES- PTS STATES DIASTOLIC HEART FAILURE CAUSED BY "STIFF" LEFT VENTRICLE. History of Any Multi-Drug Resistant Organisms: None Reported Past Surgical History: Cholecystectomy, Hernia Repair, Joint Replacement, Tonsillectomy Additional Past Surgical History / Comment(s): R tibula,fibula repair, repair deviated septum, shamir carpal tunnel, shamir. cataracts, pleural peel, pinky- lt hand repair w/screw, bilateral hemiarthroplasties knees, growth removed from lt hand index and middle finger, skin cancer removals, L inguinal and umbilical hernia repairs, low back pain injections, EGD/colonoscopies. Past Anesthesia/Blood Transfusion Reactions: No Reported Reaction Additional Past Anesthesia/Blood Transfusion Reaction / Comment(s): Pt has received blood in the past without reaction. Past Psychological History: Depression Additional Psychological History / Comment(s): Pt has depression and takes an RX for this which works well. He resides with his spouse. He uses a walker if going any distance. He no longer drives. His spouse drives. Due to his neuropathy, he wears bilateral lower leg braces. Smoking Status: Never smoker Past Alcohol Use History: Rare Past Drug Use History: None Reported - Past Family History Father Family Medical History: Cancer Additional Family Medical History / Comment(s): Father of pancreatic cancer at the age of 76yrs. Brother(s) Family Medical History: Cancer Additional Family Medical History / Comment(s): prostate cancer. Mother Family Medical History: CVA/TIA Additional Family Medical History / Comment(s): Mother of a CVA at the age of 77yrs. Medications and Allergies Home Medications Medication Instructions Recorded Confirmed Type Albuterol Nebulized [Ventolin 2.5 mg INHALATION RT-TID PRN 09/06/15 10/11/16 History Nebulized] Allopurinol [Zyloprim] 200 mg PO DAILY 09/06/15 10/11/16 History Aspirin 325 mg PO DAILY 09/06/15 10/11/16 History Cholecalciferol [Vitamin D3] 1,000 unit PO DAILY 09/06/15 10/11/16 History Doxazosin [Cardura] 2 mg PO DAILY 09/06/15 10/11/16 History Gabapentin [Neurontin] 300 mg PO BID PRN 09/06/15 10/11/16 History HYDROcodone/APAP 5-325MG [[place] 1 tab PO BID PRN 09/06/15 10/11/16 History 5-325] Sertraline [Zoloft] 50 mg PO DAILY 09/06/15 10/11/16 History Tiotropium [place] [Spiriva] 1 puff INHALATION RT-DAILY 09/06/15 10/11/16 History Vit A,C & E/Lutein/Minerals 1 tab PO DAILY 09/06/15 10/11/16 History [Ocuvite with Lutein Tablet] Fluticasone/Salmeterol [Advair 1 puff PO RT-BID 11/28/15 10/11/16 History 250-50 Diskus] Furosemide [Lasix] 40 mg PO BID 11/28/15 10/11/16 History Docusate [Colace] 100 mg PO DAILY PRN 10/11/16 10/11/16 History Donepezil HCl [Aricept] 5 mg PO DAILY 10/11/16 10/11/16 History Mupirocin 2% Oint [Bactroban 2% 1 applic TOPICAL DAILY PRN 10/11/16 10/11/16 History Oint] guaiFENesin/CODEINE PHOSPHATE 10 ml PO Q6HR PRN 10/11/16 10/11/16 History [Cheratussin AC Syrup] traZODone HCL 12.5 mg PO HS 10/11/16 10/11/16 History Allergies Allergy/AdvReac Type Severity Reaction Status Date / Time No Known Allergies Allergy Verified 10/11/16 07:32 Physical Exam Vitals: Vital Signs Temp Pulse Pulse Resp BP Pulse Ox 10/14/16 08:50 93 10/14/16 08:41 100 93 L 10/14/16 04:00 97.9 F 71 18 112/55 96 10/14/16 00:00 98.1 F 87 18 126/80 95 10/13/16 20:00 98.4 F 94 16 125/65 95 10/13/16 19:20 88 10/13/16 19:09 88 10/13/16 15:22 92 10/13/16 15:19 97.6 F 100 19 121/69 94 L 10/13/16 15:12 88 10/13/16 14:59 109 H 20 10/13/16 12:00 98.0 F 109 H 20 126/70 96 Intake and Output 10/13/16 10/14/16 10/14/16 22:59 06:59 14:59 Intake Total 680 1200 427.156 Output Total 700 200 Balance 680 500 227.156 Intake: Intake, IV Titration 500 129.156 Amount Heparin Sodium,Porcine/ 500 129.156 D5w Pmx 25,000 unit In Dextrose/Water 1 500ml. bag @ 8.48 UNITS/KG/HR 20 mls/hr IV .Q24H [facility] Rx#: [id number] Oral 180 1200 298 Output: Urine 700 200 Other: Weight 123 kg Results - Lab Results Most recent lab results Calcium 9.2 mg/dL (8.4-10.2) 10/14/16 06:50 Magnesium 2.3 mg/dL (1.6-2.3) 10/11/16 06:55 10/11/16 06:55 10/14/16 06:50 Assessment and Plan Plan: Assessment: #1. Nonoliguric acute kidney injury secondary to cardiorenal syndrome. Creatinine down to 2.4 today. #2. Rule out chronic kidney disease. Unknown baseline creatinine at this time. #3. Hypokalemia secondary to diuresis. #4. Systolic CHF with ejection fraction of 45-50%. #5. Atrial fibrillation with RVR. Plan: Continue Lasix 80 mg once daily. Dose was decreased on October 13. Check urinalysis. Check renal ultrasound. Low-salt diet. Avoid nephrotoxic agents and hypotensive episodes. Repeat electrolytes in the morning. Replace potassium. 40 mEq today. Check magnesium level. Thank you for the consultation. I will continue to follow the patient with you during his hospital stay.
--- NOTE | 2016-10-14 10:47 | US ---
EXAMINATION TYPE: US kidneys/renal and bladder DATE OF EXAM: 10/14/2016 10:31 AM COMPARISON: NONE CLINICAL HISTORY: Abnormal labs, kidney failure EXAM MEASUREMENTS: Right Kidney: 9.3 x 3.4 x 3.6 cm Left Kidney: 9.5 x 5.7 x 4.9 cm Findings: Limited due to pt breathing heavy throughout examination and body habitus. Difficulty diffe rentiating kidneys from bowel due to isoechoic echotexture. Right Kidney: isoechoic to surrounding bowel, 1 cystic area seen1.9 x 1.7 x 1.8 cm Left Kidney: isoechoic to surrounding bowel, 2 cystic areas seen Medial-2.0 x 1.9 x 2.0 cm; Lateral 1.1 x 1.3 x 1.1 cm Bladder: wnl Bilateral Jets seen: not seen at this time There is no evidence for hydronephrosis at this point in time. No nephrolithiasis is seen. Some hyp oechoic areas are identified bilaterally which are too small to characterize but likely related to re nal cysts. The urinary bladder is anechoic. Bilateral ureteral jets are not seen at this time. IMPRESSION: Findings suggest chronic medical renal disease. No hydronephrosis. Small hypoechoic nodules do not ne ed the criteria of simple cyst which likely is technical.
--- NOTE | 2016-10-14 14:07 | PN ---
Mr. Guerrero is doing well. He is sitting in the chair. He is having lunch. He looks very comfortable. He is in good spirits. He denies any chest discomfort, palpitations or shortness of breath. His heart rates are better controlled now and he is in atrial fibrillation. He is on heparin which I will discontinue. His renal function is poor. He has severe chronic kidney disease and is not a candidate for one of the newer anticoagulants. There is a definite fall risk here and therefore the decision regarding anticoagulation while medically appropriate for stroke prevention could be problematic for him. On examination, his pulse rate is in the 90s, blood pressure is 130/62 mmHg. He is afebrile, 97.9 degrees Fahrenheit. Head and neck examination is normal. Heart sounds are irregular and soft. Breath sounds are equal bilaterally. No rhonchi. No crackles. IMPRESSION: 1. Persistent atrial fibrillation with rapid ventricular response. 2. Mild left ventricle dysfunction, ejection fraction of 45 to 50%. 3. Congestive heart failure, systolic. 4. Chronic kidney disease with GFR less than 30. 5. History of prostate cancer with radiation. SUGGEST: Increase metoprolol to 25 mg 3 times a day for better rate control and decision regarding anticoagulation per primary team based upon his level of dementia and his instability while walking and risk for falls.
[2016-10-14] MEDS: traZODone HCL 50 MG TAB PO SCH (21:00)
[2016-10-14] MEDS: MELATONIN 3 MG TABLET PO SCH (21:00)
[2016-10-15 07:21] LABS: Calcium 9.2 mg/dL (8.4-10.2); Magnesium 2.3 mg/dL (1.6-2.3); Potassium 4.1 mmol/L (3.5-5.1)
[2016-10-15] MEDS: SYMBICORT 80-4.5 MCG INHALER INHALATION SCH (08:30)
[2016-10-15] MEDS: IPRATROPIUM-ALBUTEROL 3 ML NEB INHALATION SCH ×2 (08:30→11:36)
[2016-10-15] MEDS ORDERED: ASPIRIN 81 MG CHEW PO SCH (09:00)
[2016-10-15] MEDS: DOXAZOSIN 2 MG TAB PO SCH (09:12)
[2016-10-15] MEDS: FUROSEMIDE 80 MG TAB PO SCH (09:12)
[2016-10-15] MEDS: METOPROLOL TARTRATE 25 MG TAB PO SCH (09:12)
--- NOTE | 2016-10-15 09:13 | P.PN ---
Subjective Patient is seen in follow-up for acute kidney injury. Unclear as to what his baseline renal function is. Renal function worse today. Creatinine at 2.9. Patient's currently sitting up in chair. Denies chest pain or shortness of breath. No vomiting or diarrhea. Admits to good urine output. Blood pressure this morning was in the systolic 80s. He does have systolic CHF with ejection fraction of 45-50%. He was maintained on Lasix 80 mg twice daily which was decreased 2 days ago to once daily. Vital signs are stable. General: The patient appeared well nourished and normally developed. HEENT: Head exam is unremarkable. Neck is without jugular venous distension. LUNGS: Lungs are clear to auscultation and percussion. Breath sounds decreased. HEART: Rate and Rhythm are regular. First and second heart sounds normal. No murmurs, rubs or gallops. ABDOMEN: Abdominal exam reveals normal bowel sounds. Non-tender and non- distended. No evidence of peritonitis. EXTREMITITES: No clubbing, cyanosis, or edema. Objective - Vital Signs Vital signs: Vital Signs Temp 97.5 F L 10/15/16 04:00 Pulse 104 H 10/15/16 08:42 Resp 18 10/15/16 04:00 BP 81/54 10/15/16 04:00 Pulse Ox 94 L 10/15/16 08:33 Intake & Output 10/14/16 10/15/16 10/15/16 18:59 06:59 18:59 Intake Total 973.330 840 125 Output Total 200 750 100 Balance 773.330 90 25 Weight 125.7 kg Intake: Intake, IV Titration 455.330 Amount Heparin Sodium,Porcine/ 455.330 D5w Pmx 25,000 unit In Dextrose/Water 1 500ml. bag @ 8.48 UNITS/KG/HR 20 mls/hr IV .Q24H [facility] Rx#: [id number] Oral 518 840 125 Output: Urine 200 750 100 Other: Voiding Method Urinal Urinal # Voids 1 - Labs CBC & Chem 7: 10/11/16 06:55 10/15/16 06:38 Labs: Abnormal Lab Results - Last 24 Hours (Table) 10/14/16 10/15/16 Range/Units 14:24 06:38 APTT 50.4 H (22.0-30.0) sec Chloride 92 L (98-107) mmol/L Carbon Dioxide 33 H (22-30) mmol/L BUN 85 H* (9-20) mg/dL Creatinine 2.94 H (0.66-1.25) mg/dL Glucose 130 H (74-99) mg/dL Assessment and Plan Plan: Assessment: #1. Nonoliguric acute kidney injury secondary to cardiorenal syndrome. Creatinine elevated at 2.9 today. Related to hypotension and diuretics. #2. Rule out chronic kidney disease. Unknown baseline creatinine at this time. Renal ultrasound benign. #3. Hypokalemia secondary to diuresis. Improved. #4. Systolic CHF with ejection fraction of 45-50%. #5. Atrial fibrillation with RVR. Plan: Hold Lasix for now. Check urinalysis. Low-salt diet. Avoid nephrotoxic agents and hypotensive episodes. To hold antihypertensives for systolic blood pressure less than 120. Repeat electrolytes in the morning.
[2016-10-15] MEDS: SERTRALINE 50 MG TAB PO SCH (09:19)
[2016-10-15] MEDS: GENTAMICIN/PREDNISOL AC OPHTH OINT 3.5GM RIGHT EYE SCH ×2 (09:19→13:15)
[2016-10-15] MEDS: ALLOPURINOL 100 MG TAB PO SCH (09:19)
[2016-10-15] MEDS: DONEPEZIL 5 MG TAB PO SCH (09:19)
[2016-10-15 09:31] VITALS: TEMP 97.4
--- NOTE | 2016-10-15 11:14 | PN ---
DATE OF SERVICE: 10/14/2016 PRESENTING COMPLAINT: Short of breath. INTERVAL HISTORY: This patient presented with CHF exacerbation; EF 40% to 45%. Edema has come quite a bit, atrial fibrillation is relatively controlled. Breathing is better, sitting up in a chair. Review of systems done for constitutional, cardiovascular, GI, pulmonary; relevant findings as above. Current medications are reviewed that include p.o. Lasix. On examination, temperature 98.6, pulse 76, respirations 19, blood pressure 130/60, pulse ox 93% on room air. GENERAL APPEARANCE: Sitting up in a chair, comfortable. EYES: Pupils equal. Conjunctivae normal. NECK: JVD not raised. RESPIRATORY: Increased lung sounds, diminished breath sounds. CARDIOVASCULAR: Heart sounds regular, decreased edema. ABDOMEN: Soft, nontender. Liver and spleen not palpable. PSYCHIATRY: Alert and oriented x3. Mood and affect normal. INVESTIGATIONS: Potassium 3.4. BUN 18, creatinine 2.40. ASSESSMENT: 1. Acute on chronic congestive heart failure from both systolic and diastolic dysfunction; ejection fraction 40% to 45%, from underlying hypertensive heart disease, now compensated. 2. Essential hypertension, chronic. 3. Peripheral neuropathy, chronic. 4. Emphysema. 5. 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 6. 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 7. Chronic urinary incontinence. 8. Obesity; body mass index of 36.3. 9. Right eye corneal abrasion, getting steroids. 10. Persistent atrial fibrillation, rate-controlled. PLAN: The patient is somewhat a high risk of bleeding because of his chronic kidney disease. Patient does use a walker, but purely at times of fall it has been determined that patient needs to have at least 265 falls a year, to outweigh the benefit of anticoagulation, purely based on numbers, so he is a close call. Did talk to him. At this point, will start him on a dose of 50 mg q.h.s. This will be further discussed with the who is not present right now. Looking at discharge planning.
[2016-10-15 13:06] VITALS: BP 114/57; PULSE 84; RESP 19
[2016-10-15 13:12] LABS: Appearance,Urine Cloudy (Clear); Bilirubin,Urine Negative (Negative); Glucose,Urine (UA) Negative (Negative); Ketones,Urine Negative (Negative); Leukocyte Esterase,Urine Large (Negative); Mucus,Urine Rare /hpf; Nitrite,Urine Positive (Negative); PH, Urine 5.5 (5.0-8.0); Particle Count 5476; Protein,Urine Negative (Negative); RBC,Urine 3 /hpf (0-5); Specific Gravity,Urine 1.011 (1.001-1.035); UA Billing (MACRO vs. MICRO) MICRO; Urobilinogen,Urine <2.0 mg/dL (<2.0); WBC,Urine 114 /hpf (0-5)
--- NOTE | 2016-10-15 15:48 | P.PN ---
<Jia Theodore E - Last Filed: 10/15/16 15:43> Subjective Principal diagnosis: A. fib History of present illness: This is a pleasant 86-year-old gentleman who is a poor historian, most of the HPI was obtained from his and the medical record. He does have a known history of chronic lung disease, right-sided heart failure, hypertension, renal disease and prostate cancer with radiation treatment in the past. Presented to the emergency department with complaints of chest discomfort. Upon presentation , patient was found to be in atrial fibrillation, which is new for him. Because of the patient's at increased risk secondary to elevated kidney function , patient was advised to be initiated on Coumadin. His risk is quite high to be placed on any of the newer anticoagulants, this was explained to the patient and his in detail. Objective - Vital Signs Vital signs: Vital Signs Temp 97.4 F L 10/15/16 08:00 Pulse 84 10/15/16 12:00 Resp 19 10/15/16 12:00 BP 114/57 10/15/16 12:00 Pulse Ox 96 10/15/16 12:00 Intake & Output 10/14/16 10/15/16 10/15/16 18:59 06:59 18:59 Intake Total 973.330 840 365 Output Total 200 750 500 Balance 773.330 90 -135 Weight 125.7 kg Intake: Intake, IV Titration 455.330 Amount Heparin Sodium,Porcine/ 455.330 D5w Pmx 25,000 unit In Dextrose/Water 1 500ml. bag @ 8.48 UNITS/KG/HR 20 mls/hr IV .Q24H [facility] Rx#: [id number] Oral 518 840 365 Output: Urine 200 750 500 Other: Voiding Method Urinal Urinal # Voids 1 - Exam PHYSICAL EXAMINATION: HEENT: Head is atraumatic, normocephalic. Pupils equal, round. Neck is supple. There is no elevated jugular venous pressure. HEART EXAMINATION: Heart sounds irregular regular, S1 and S2 normal. No murmur or gallop heard. CHEST EXAMINATION: Lungs reveal diminished air entry bilaterally. No chest wall tenderness is noted on palpation or with deep breathing. ABDOMEN: Soft, obese, nontender. Bowel sounds are heard. No organomegaly noted. EXTREMITIES: 2+ peripheral pulses with evidence of 1-2+ peripheral edema and no calf tenderness noted. NEUROLOGIC patient is awake, alert and oriented x3 with poor short-term memory and periods of confusion. - Labs CBC & Chem 7: 10/11/16 06:55 10/15/16 06:38 Labs: Abnormal Lab Results - Last 24 Hours (Table) 10/15/16 10/15/16 Range/Units 06:38 12:03 Chloride 92 L (98-107) mmol/L Carbon Dioxide 33 H (22-30) mmol/L BUN 85 H* (9-20) mg/dL Creatinine 2.94 H (0.66-1.25) mg/dL Glucose 130 H (74-99) mg/dL Ur Leukocyte Esterase Large H (Negative) Urine WBC 114 H (0-5) /hpf Urine WBC Clumps Occasional H (None) /hpf Urine Mucus Rare H (None) /hpf Assessment and Plan (1) Paroxysmal a-fib Status: Acute (2) Kidney disease Status: Acute (3) COPD (chronic obstructive pulmonary disease) Status: Acute (4) HTN (hypertension) Status: Acute (5) Falls Status: Acute Plan: From cardiology's perspective, we will recommend to continue the current medications. As mentioned, patient's option for anticoagulation should be Coumadin based on his renal function. If the patient and do not want Coumadin, perhaps patient should be considered for left atrial appendage closure device. DNP note has been reviewed, I agree with a documented findings and plan of care. Patient was seen and examined. <Raul Fernando - Last Filed: 10/16/16 08:35> Objective - Vital Signs Vital signs: Vital Signs Temp 97.4 F L 10/15/16 08:00 Pulse 84 10/15/16 12:00 Resp 19 10/15/16 12:00 BP 114/57 10/15/16 12:00 Pulse Ox 96 10/15/16 12:00 Intake & Output 10/15/16 10/16/16 10/16/16 18:59 06:59 18:59 Intake Total 365 Output Total 500 Balance -135 Intake: Oral 365 Output: Urine 500 - Labs CBC & Chem 7: 10/11/16 06:55 10/15/16 06:38 Labs: Abnormal Lab Results - Last 24 Hours (Table) 10/15/16 Range/Units 12:03 Ur Leukocyte Esterase Large H (Negative) Urine WBC 114 H (0-5) /hpf Urine WBC Clumps Occasional H (None) /hpf Urine Mucus Rare H (None) /hpf
[2016-10-15] MEDS ORDERED: RIVAROXABAN 15 MG TAB PO SCH (17:30)
--- NOTE | 2016-10-16 10:36 | DS ---
DATE OF ADMISSION: 10/11/2016 DATE OF DISCHARGE: 10/15/2016 FINAL DIAGNOSES: 1. Acute on chronic congestive heart failure from both systolic and diastolic dysfunction; ejection fraction 40% to 45%, underlying hypertensive heart disease. 2. Essential hypertension, chronic. 3. Peripheral neuropathy, chronic idiopathic. 4. Emphysema. 5. 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 6. Depression, not otherwise specified. 7. Chronic urinary incontinence. 8. Obesity, body mass index of 36.3. 9. Right ankle abrasion, getting steroids. 10. Persistent atrial fibrillation, rate controlled. HOSPITAL COURSE: This patient presented with CHF exacerbation, responded well to diuretics. Patient's BUN and creatinine was 85 and 2.9 for the time of discharge. CONSULTATIONS: 1. Dr. Conroy from Nephrology. 2. Dr. Fernando from Cardiology. Today I talked with and , detail about anticoagulation. The Lasix should be very careful with her and make sure there is no episodes of fall. Also, because of renal failure there is a high risk of bleeding. Patient's does not want Coumadin. The option was Xarelto, but given his renal function and GFR, the indications are not clear but given the choice, we just decided to go to the smaller dose of Xarelto to which the was agreeable to with the understanding that the laboratory studies do not say one way or the other about the same. This will also discuss with Dr. Fernando but his recommendations to put the patient on Coumadin with the patient and the family, patient's did not want. On exam, LUNGS: Decreased breath sound. Edema decreased. Discharge planning more than 35 minutes. DISCHARGE MEDICATIONS: 1. Ventolin 2.5 t.i.d. p.r.n. 2. Allopurinol 200 mg p.o. daily. 3. Vitamin D3 one thousand units p.o. daily. 4. Cardura 2 mg p.o. daily. 5. Ebony 5 one tablet p.o. t.i.d. p.r.n. 6. Zoloft 50 mg p.o. daily. 7. Ocuvite 1 tablet p.o. daily. 8. Advair 250/50 one puff b.i.d. 9. Aricept 5 mg p.o. daily. 10. Bactroban 2% topically daily p.r.n. 11. Trazodone 12.5 p.o. q.h.s. 12. Aspirin 81 mg p.o. daily. 13. Lasix 40 mg p.o. b.i.d. 14. DuoNeb t.i.d. 15. Melatonin 3 mg q.h.s. 16. Lopressor 25 p.o. t.i.d. 17. Xarelto 10 mg p.o. daily. Follow up with Dr. Fernando in one week; follow up with Dr. Sandra Long in one week; followup with Dr. Conroy in one week. BMP in one week. DC planning more than 35 minutes.
== END 2016-10-15 14:41 | disposition home health service (06) | DRG 291 ==
LOC: EC 05:57 → 6SEL 08:46
PROVIDERS: ADMIT Hospitalist; ATTEND Hospitalist
DX: I13.0 Hypertensive heart and chronic kidney disease with heart failure and stage 1 through stage 4 chronic kidney disease, or unspecified chronic kidney disease (principal); I50.43 Acute on chronic combined systolic (congestive) and diastolic (congestive) heart failure; N18.4 Chronic kidney disease, stage 4 (severe); I95.9 Hypotension, unspecified; I48.1 Persistent atrial fibrillation; N17.9 Acute kidney failure, unspecified; G62.9 Polyneuropathy, unspecified; F03.90 Unspecified dementia, unspecified severity, without behavioral disturbance, psychotic disturbance, mood disturbance, and anxiety; I20.0 Unstable angina; J44.9 Chronic obstructive pulmonary disease, unspecified; S05.01XA Injury of conjunctiva and corneal abrasion without foreign body, right eye, initial encounter; F32.9 Major depressive disorder, single episode, unspecified; R32 Unspecified urinary incontinence; T50.2X5A Adverse effect of carbonic-anhydrase inhibitors, benzothiadiazides and other diuretics, initial encounter; M10.9 Gout, unspecified; E87.6 Hypokalemia; E66.9 Obesity, unspecified; Z68.38 Body mass index [BMI] 38.0-38.9, adult; R26.2 Difficulty in walking, not elsewhere classified; Z91.81 History of falling; Z87.01 Personal history of pneumonia (recurrent); Z96.653 Presence of artificial knee joint, bilateral; Z85.46 Personal history of malignant neoplasm of prostate; Z92.3 Personal history of irradiation; Z90.49 Acquired absence of other specified parts of digestive tract; Z98.42 Cataract extraction status, left eye; Z98.41 Cataract extraction status, right eye; Z85.828 Personal history of other malignant neoplasm of skin; Z79.82 Long term (current) use of aspirin; Z79.899 Other long term (current) drug therapy
CPT/HCPCS: 36415; 71020; 76770; 80048; 80053; 80061; 81001; 82550; 82553; 83690; 83735; 83880; 84484; 85025; 85379; 85610; 85730; 93005; 93306; 94640; 94760; 96365; 96366; 96376; 99291